=== PATIENT | female | born 1990 | race Caucasian/White ===

== ENCOUNTER 2023-11-24 14:35 | Emergency (ER) | payer BC, SELFPAY ==
[2023-11-24 14:51] VITALS: BP 146/91; PULSE 94; RESP 20; TEMP 36.8; O2SAT 98; BMI 32.1
--- NOTE | 2023-11-24 15:01 | CT_ITS ---
The [address] [address] Patient Name: ERICK HARRINGTON MRN: [id number] date: 1990 Sex: F Assigned Patient Location: ER Current Patient Location: ER Accession/Order Number: [id number] Exam Date: 11/24/2023 15:12 Report Date: 11/24/2023 15:30 At the request of: PARKER DE LOS SANTOS Procedure: CT head/brain wo con EXAMINATION: CT head/brain wo con HISTORY: Frontal headache for 3 days COMPARISON: No relevant comparison available. TECHNIQUE: Axial CT images were obtained without IV contrast. Dose reduction techniques were achieved by using automated exposure control and/or adjustment of mA and/or kV according to patient size and/or use of iterative reconstruction technique. FINDINGS: BRAIN: No edema, hemorrhage, mass, acute infarction, or inappropriate atrophy. CSF SPACES: Enlarged lateral, third, and fourth ventricles. No appreciable mass effect or descent of the tentorium. No hemorrhage or mass. SKULL: No fracture, mass, or other significant visible lesion. SINUSES: No significant mucosal thickening or fluid on the limited views. ORBITS: No appreciable abnormality on the limited views. OTHER: Negative CT/CT head/brain wo con IMPRESSION: 1. No intracranial hemorrhage or mass. 2. 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 While I suspect this is chronic/long-standing, there are no prior studies for comparison. Electronically authenticated by: LUCRECIA THAPA Date: 11/24/2023 15:30
--- NOTE | 2023-11-24 15:01 | ED.GENADUL1 ---
HPI - General Adult General Chief complaint: Headache Stated complaint: HEADACHE SYMPYOMS/PRESSURE Time Seen by Provider: 11/24/23 14:51 Source: patient Mode of arrival: walk-in Limitations: no limitations History of Present Illness HPI narrative: 33-year-old female presents for headache. It is frontal and she has had no trauma fever or localized weakness. She has been having this for 3 days and intermittently she has a sharp stabbing sensation. No cough chest pain or shortness of breath. No vomiting or diarrhea. She took some dusr-dsb-cqyfmmr medications for it but it did not seem to help. Related Data Previous Rx's Medication Instructions Recorded ipzmdcqwdp-lehcvoytmbfdg-woheovbo 1 cap PO Q6H PRN pain #20 caps 11/24/23 50 mg-300 mg-40 mg capsule (Fioricet) Allergies Allergy/AdvReac Type Severity Reaction Status Date / Time No Known Drug Allergies Allergy Verified 11/24/23 14:50 Review of Systems ROS Narrative A ten point review of systems is negative except as noted above. PFSH PFSH Social History Smoking status: Former smoker Exam Narrative Exam Narrative: Nurses note and vital signs reviewed and patient is not hypoxic. General: The patient appears well and in no apparent distress. Patient is resting comfortably on cart. Skin: Warm, dry, no pallor noted. There is no rash noted. Head: Normocephalic, atraumatic Eye: Normal conjunctiva, no drainage, EOMI. PERRL; no facial swelling or erythema Ears, Nose, Mouth, and Throat: oral mucosa is moist. Nares patent. Cardiovascular: Regular Rate and Rhythm Respiratory: Patient is in no distress, no accessory muscle use, lungs are clear to auscultation, no wheezing, rales or rhonchi Back: non-tender GI: Soft and nontender Musculoskeletal: The patient has no evidence of calf tenderness, no pitting edema, symmetrical pulses noted bilaterally Neurological: A&O, normal speech Psychiatric: Cooperative Constitutional Vital Signs, click to edit/add: Last Vital Signs Temp 98.2 F 11/24/23 14:51 Pulse 94 H 11/24/23 14:51 Resp 20 11/24/23 14:51 BP 146/91 H 11/24/23 14:51 Pulse Ox 98 11/24/23 14:51 O2 Del Method Room Air 11/24/23 14:51 Course Vital Signs Vital signs: Vital Signs Temperature 98.2 F 11/24/23 14:51 Pulse Rate 94 H 11/24/23 14:51 Respiratory Rate 11/24/23 14:51 Blood Pressure 146/91 H 11/24/23 14:51 Pulse Oximetry 98 11/24/23 14:51 Oxygen Delivery Method Room Air 11/24/23 14:51 Temperature 98.2 F 11/24/23 14:51 Pulse Rate 94 H 11/24/23 14:51 Respiratory Rate 11/24/23 14:51 Blood Pressure 146/91 H 11/24/23 14:51 Pulse Oximetry 98 11/24/23 14:51 Oxygen Delivery Method Room Air 11/24/23 14:51 Medical Decision Making MDM Narrative Medical decision making narrative: CAT scan shows enlarged ventricles and she is being referred to neurology for follow-up. She was given IM Toradol and prescribed Fioricet. She has never had a previous CAT scan of her head. Treatment diagnosis and follow-up were discussed with the patient. Differential Diagnosis Differential Diagnosis: Tension headache, intracranial hemorrhage, nonspecific headache Imaging Data CT scan - head: Radiologist's impression: ITS Impressions Head CT 11/24/23 15:01 IMPRESSION: 1. No intracranial hemorrhage or mass. 2. 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 While I suspect this is chronic/long-standing, there are no prior studies for comparison. Electronically authenticated by: LUCRECIA THAPA Date: 11/24/2023 15:30 Discharge Plan Discharge Chief Complaint: Headache Clinical Impression: Headache Patient Disposition: Home, Self-Care Time of Disposition Decision: 15:42 Condition: Good Mode of Transportation: Private Vehicle Prescriptions / Home Meds: New aollzgawgm-ksudhdmcurada-hwtd [Fioricet] 50-300-40 mg capsule 1 cap PO Q6H PRN (Reason: pain) Qty: 20 0RF Instructions: Acute Headache (ED) Additional Instructions: Follow-up with [facility] Stand Alone Forms: Portal Instructions Referrals: Physician,Non-Staff, MD [Primary Care Provider] - 1 week
[2023-11-24] MEDS: KETOROLAC TROMETHAMINE 60 MG/2 ML VIAL IM (15:49)
== END 2023-11-24 15:54 | disposition home or self-care (01) ==
PROVIDERS: Emergency Provider Emergency Medicine
DX: R51.9 Headache, unspecified (principal); Z87.891 Personal history of nicotine dependence
CPT/HCPCS: 70450; 96372; 99285; J1885

== ENCOUNTER 2023-11-25 10:41 | Emergency (ER) | payer BC, SELFPAY ==
[2023-11-25 10:46] VITALS: BP 140/76; PULSE 102; RESP 18; TEMP 36.9; O2SAT 96; BMI 32.1
--- NOTE | 2023-11-25 10:59 | ED_ITS ---
HPI - General Adult General Chief complaint: Headache Stated complaint: HEADACHE X4 DAYS Time Seen by Provider: 11/25/23 10:58 Source: patient and family Mode of arrival: walk-in Limitations: no limitations History of Present Illness HPI narrative: Patient is a 33-year-old female who is presenting to the ER with chief complaint of bilateral frontal headache that radiates to the bilateral upper parietal area since either Tuesday or Tuesday. Patient does not typically have history of headaches or migraines. She says that she will get headaches typically monthly when she thinks that she is ovulating, she thinks she may have been ovulating at the beginning of the week. Patient is due for her menses in a few weeks, patient says that she is not , does not want to be checked. Patient did have a CT of the brain yesterday, she was seen in the ER and evaluated for this headache yesterday as well. Patient was given medication, says she is felt slightly better prior to discharge. She was given a prescription for Fioricet. Patient took 1 Fioricet this morning with little relief, came back to the ER this morning for reevaluation with her sister who can drive home. Patient has no recent fall, no trauma, no other acute complaints. Patient is been having nausea and vomiting yesterday and today as well. No bloody emesis. No coffee- ground color. Yellowish coloration. No photophobia or phonophobia. No other acute complaints. All systems are negative except as noted/marked. All systems reviewed and otherwise negative. Nurses note and vital signs reviewed and patient is not hypoxic. General: The patient appears mild distress secondary to pain. When I walked into the room, patient is holding the top of her head. Patient is resting comfortably on cart. Patient is not toxic, lethargic, or listless Skin: Warm, dry, no pallor noted. There is no rash noted. No petechiae, purpura. Head: Normocephalic, atraumatic; no meningeal signs or symptoms, no nuchal rigidity. Eye: Normal conjunctiva, no drainage, EOMI. PERRL Ears, Nose, Mouth, and Throat: oral mucosa is moist. Nares patent. Mouth without vesicles. Cardiovascular: Regular Rate and Rhythm, no murmur, gallop, rub Respiratory: Patient is in no distress, no accessory muscle use, lungs are clear to auscultation, no wheezing, rales or rhonchi Back: non-tender, no CVA tenderness bilaterally to percussion. No CT LS midline pain GI: obese, no tenderness to palpation, no masses appreciated. No rebound, guarding, or rigidity noted. No distention Musculoskeletal: Patient has full range of motion of all of the extremities, no motor, sensory, or focal neurological deficits Neurological: A&O x4, normal speech no neurological deficits; Psychiatric: Cooperative Related Data Previous Rx's Medication Instructions Recorded pkljjlroan-qfirikgnqihsv-rjwseyvp 1 cap PO Q6H PRN pain #20 caps 11/24/23 50 mg-300 mg-40 mg capsule (Fioricet) prochlorperazine maleate 10 mg 10 mg PO Q8H PRN nausea and 11/25/23 tablet (Compazine) vomiting 3 days #10 tabs Allergies Allergy/AdvReac Type Severity Reaction Status Date / Time No Known Drug Allergies Allergy Verified 11/24/23 14:50 PFSH PFSH Social History Smoking status: Current every day smoker Exam Constitutional Vital Signs, click to edit/add: Last Vital Signs Temp 98.5 F 11/25/23 10:46 Pulse 85 11/25/23 13:00 Resp 14 11/25/23 13:00 BP 147/82 H 11/25/23 13:00 Pulse Ox 97 11/25/23 13:00 O2 Del Method Room Air 11/25/23 13:00 Course Vital Signs Vital signs: Vital Signs Temperature 98.5 F 11/25/23 10:46 Pulse Rate 102 H 11/25/23 10:46 Respiratory Rate 18 11/25/23 10:46 Blood Pressure 140/76 11/25/23 10:46 Pulse Oximetry 96 11/25/23 10:46 Oxygen Delivery Method Room Air 11/25/23 10:46 Temperature 98.5 F 11/25/23 10:46 Pulse Rate 85 11/25/23 13:00 Respiratory Rate 14 11/25/23 13:00 Blood Pressure 147/82 H 11/25/23 13:00 Pulse Oximetry 97 11/25/23 13:00 Oxygen Delivery Method Room Air 11/25/23 13:00 Medical Decision Making MDM Narrative Medical decision making narrative: Patient had IV established, patient was given Zofran and Compazine, along with Toradol, IV fluids as well. Patient had a COVID and influenza swab done. 1130 patient has had medication, patient is sleeping. Patient's sister stated that she has not slept much in the last couple days. 1200 Patient is headache, nausea free. Patient feels significantly better. Patient is completely asymptomatic at discharge, patient told Aranza VALE and this and she told myself and was very thankful for help and care. Patient was sent home with prescription for Compazine to use in the future if needed for nausea, vomiting, or headache. Patient will follow-up with PCP if she needs additional migraine or headache medication. No questions at discharge. Lab Data Labs: Lab Results 11/25/23 Range/Units 10:50 Influenza Type A Ag Negative Influenza Type B Ag Negative SARS-CoV-2 Ag (CV2AG) Negative (NEGATIVE) Discharge Plan Discharge Chief Complaint: Headache Clinical Impression: Headache, Nausea & vomiting Patient Disposition: Home, Self-Care Time of Disposition Decision: 12:50 Condition: Good Prescriptions / Home Meds: New prochlorperazine maleate [Compazine] 10 mg tablet 10 mg PO Q8H PRN (Reason: nausea and vomiting) 3 Days Qty: 10 0RF No Action rfdbmxuqnn-oewmmzgxbfqnd-uivh [Fioricet] 50-300-40 mg capsule 1 cap PO Q6H PRN (Reason: pain) Qty: 20 0RF Instructions: Acute Nausea and Vomiting (ED), General Headache (ED) Additional Instructions: Increase fluids at home, Gatorade, Powerade, water. Use Compazine as needed for nausea, vomiting or headache. Follow-up with PCP for additional medication reevaluation in 3 to 4 days. Stand Alone Forms: Portal Instructions Referrals: Physician,Non-Staff, MD [Primary Care Provider] - 1 week Discharge Date/Time: 11/25/23 13:07
[2023-11-25] MEDS: DEXAMETHASONE SOD PHOS 10 MG/ML VIAL IV (11:05)
[2023-11-25] MEDS: ONDANSETRON PF 4 MG/2 ML VIAL IV (11:05)
[2023-11-25] MEDS: 0.9 % SODIUM CHLORIDE 1,000 ML 1000 ML IV (11:05)
--- OUTSIDE RECORDS SUMMARY | 2023-11-25 11:07 | XMS_ITS | CCD ---
Author Name Unknown Address [address] [place] [address] [facility] Care Team Providers Care Clothes Presser Name Role Phone JUDI NO Admitting Unavailable JUDI NO Attending Unavailable KEE COOPER Consulting Unavailable JUDI NO Consulting Unavailable JUDI NO Admitting Unavailable JUDI NO Attending Unavailable JUDI NO Consulting Unavailable JUDI NO Admitting Unavailable JUDI NO Attending Unavailable MISC, DOCTOR Primary Care Unavailable JUDI NO Consulting Unavailable JUDI NO Admitting Unavailable JUDI NO Attending Unavailable JUDI NO Consulting Unavailable JUDI NO Admitting Unavailable JUDI NO Attending Unavailable JUDI NO Consulting Unavailable JUDI NO Admitting Unavailable JUDI NO Attending Unavailable JUDI NO Consulting Unavailable JUDI NO Admitting Unavailable JUDI NO Attending Unavailable JUDI NO Consulting Unavailable JUDI NO Admitting Unavailable JUDI NO Attending Unavailable JUDI NO Consulting Unavailable JUID NO Admitting Unavailable JUDI NO Attending Unavailable JUDI NO Consulting Unavailable JUDI NO Admitting Unavailable JUDI NO Attending Unavailable REQUEST, NONE LISTED Primary Care Unavailable JUDI NO Consulting Unavailable JUDI NO Admitting Unavailable JUDI NO Attending Unavailable JUDI NO Consulting Unavailable JUDI NO Admitting Unavailable JUDI NO Attending Unavailable REQUEST, NONE LISTED Primary Care Unavailable BEBO HAZEL V Consulting Unavailable JUDI NO Consulting Unavailable JUDI NO Admitting Unavailable JUDI NO Attending Unavailable REQUEST, NONE LISTED Primary Care Unavailable BEBO HAZEL V Consulting Unavailable JUDI NO Consulting Unavailable JUDI ON Admitting Unavailable JUDI NO Attending Unavailable REQUEST, NONE LISTED Primary Care Unavailable JUDI NO Admitting Unavailable JUDI NO Attending Unavailable REQUEST, NONE LISTED Primary Care Unavailable JUDI NO Admitting Unavailable JUDI NO Attending Unavailable REQUEST, NONE LISTED Primary Care Unavailable Ramila Byrne Unavailable Shruthi Vang Unavailable Medications Current Medications Medication Drug Class(es) Dates Sig (Normalized) Sig (Original) predniSONE 20 mg oral tablet (1 source) Start: 10-12-2023 take 1 tablet by mouth every twelve hours predniSONE 20 MG 1 tablet Orally bid for 5 day(s) Oct, Active Completed/Discontinued Medications Medication Drug Class(es) Dates Sig (Normalized) Sig (Original) dextromethorphan hydrobromide 15 mg / guaiFENesin 400 mg / pseudoephedrine hydrochloride 60 mg oral tablet (2 sources) alpha-Adrenergic Agonist, Uncompetitive X-hvbxgr-V-aspartat e Receptor Antagonist, Sigma-1 Agonist Start: 08-31-2021 take 4 tablets by mouth every twenty-four hours as needed Capmist DM 60-15-400 MG as needed Orally every 4-6 hours as needed, max 4 tablets in 24 hours for 5 days Aug, Not-Taking/PRN ibuprofen 800 mg oral tablet (1 source) Nonsteroidal Anti-inflammatory Drug Ibuprofen 800 MG (Prior Auth: Rx Ref#:[id number] 4) Oral for 10 Days Not-Taking/PRN oseltamivir 75 mg oral capsule (1 source) Neuraminidase Inhibitor Oseltamivir Phosphate 75 MG (Prior Auth: Rx Ref#:[id number] 3) Oral for 5 Days Not-Taking/PRN sodium fluoride 0.011 mg/mg toothpaste (1 source) PreviDent 5000 Booster Plus 1.1 % (Prior Auth: Rx Ref#:[id number] 7) Dental for 12 Days Not-Taking/PRN Problems Active Problems Problem Classification Problem Date Documented Date Episodic/Chronic Hypertension complicating ; childbirth and the puerperium (8 sources) Unspecified pre-existing hypertension complicating , third trimester; Translations: [Unspecified pre-existing hypertension complicating , unspecified trimester] Onset: 09-04-2018 Chronic Influenza (1 source) Influenza due to other identified influenza virus with other respiratory manifestations Episodic Other complications of (1 source) Smoking (tobacco) complicating , third trimester; Translations: [SMOKING TOBACCO COMP PREG 3RD TRI] Onset: 03-15-2019 Episodic Previous (4 sources) Maternal care for unspecified type scar from previous delivery; Translations: [MAT CARE UNS TYPE SCAR PREV C-SECT] Onset: 10-27-2018 Residual codes; unclassified (1 source) 33 weeks gestation of ; Translations: [33 WEEKS GESTATION OF ] Onset: 03-06-2019 Residual codes; unclassified (1 source) 34 weeks gestation of ; Translations: [34 WEEKS GESTATION OF ] Onset: 03-15-2019 Substance-related disorders (1 source) Nicotine dependence, cigarettes, uncomplicated; Translations: [NICOTINE DEPEND CIGARETTES UNCOMP] Onset: 03-15-2019 Chronic Past or Other Problems Problem Classification Problem Date Documented Date Episodic/Chronic Diabetes mellitus without complication (4 sources) Other abnormal glucose; Translations: [OTHER ABNORMAL GLUCOSE] Onset: 01-05-2019 Episodic Immunizations and screening for infectious disease (1 source) Contact with and (suspected) exposure to other viral communicable diseases Onset: 08-31-2021 Resolved: 08-31-2021 Episodic Other female genital disorders (4 sources) Other specified noninflammatory disorders of vagina; Translations: [OTH SPEC NONINFLAMMATORY D/O VAGINA] Onset: 01-10-2019 Episodic Other and delivery including normal (12 sources) Encounter for supervision of normal , unspecified, second trimester; Translations: [Encounter for test, result positive] Onset: 08-30-2018 Episodic Other screening for suspected conditions (not mental disorders or infectious disease) (4 sources) Encounter for screening for malignant neoplasm of cervix; Translations: [ENC SCREENING MALIG NEOPLASM CERV] Onset: 10-18-2018 Episodic Unclassified (1 source) Contact with and (suspected) exposure to covid-19 Z20.822 Unclassified (1 source) Acute cough R05.1 Viral infection (1 source) COVID-19 Onset: 08-31-2021 Resolved: 08-31-2021 Results Test Name Value Interpretation Reference Range Facility COVID/FLU/RSV RT-PCRon 10-12 SARS-CoV-2 (COVID-19) RNA KATARINA+probe Ql (Unsp spec) Negative [facility] Other COVID/FLU/RSV RT-PCR Positive [facility] Other COVID/FLU/RSV RT-PCR Negative [facility] Other COVID Quick Testingon 2020 Result Positive [facility] Other US PREG AMNIOTIC FLUID VOLon 03-07-2019 US PREG AMNIOTIC FLUID VOL Patient: ERICK HARRINGTON Exam Date: 03/07/2019 : 1990 Gender:F Ordering : DR. JUDI NO . Admission #: [id number] Family : Order #: [id number] CLICK HERE TO VIEW EXAM RADIOLOGY REPORT PROCEDURE: ULTRASOUND AMNIOTIC FLUID VOLUME COMPARISON: US PREG AMNIOTIC FLUID VOL, 02/28/2019. INDICATIONS: Pre-existing hypertension complicating , childbirth and puerperium;34w3d single TECHNIQUE: Limited sonographic examination for amniotic fluid volume FINDINGS: POSITION: Cephalic HEART RATE: 137 bpm AMNIOTIC FLUID VOL: 15.6 cm (Between 5th and 95th percentile.) MAX VERTICAL POCKET: 9.7 cm CONCLUSION: 1. Normal amniotic fluid volume Dictated by: Bebo Hazel M.D. on 03/07/2019 at 11:01 Approved by: Bebo Hazel M.D. on 03/07/2019 at 11:01 Normal [facility] US PREG BIOPHY W NSTon 03-07 US PREG BIOPHY W NST Patient: ERICK HARRINGTON Exam Date: 03/07/2019 : 1990 Gender:F Ordering : DR. JUDI NO . Admission #: [id number] Family : Order #: [id number] CLICK HERE TO VIEW EXAM RADIOLOGY REPORT PROCEDURE: ULTRASOUND BIOPHYSICAL WITH NON STRESS TEST COMPARISON: US PREG BIOPHY W NST, 02/28/2019. INDICATIONS: Pre-existing hypertension complicating , childbirth and puerperium; 34w3d single TECHNIQUE: Ultrasound biophysical profile was performed in the radiology department. non-reactive stress testing was performed by nursing staff in the birthing center. FINDINGS: BREATHING MOVEMENTS: 2 GROSS BODY MOVEMENTS: 2 TONE: 2 QUALITATIVE AMNIOTIC FLUID VOLUME: 2 PRESENTATION: Cephalic HEART RATE: 137.06 H.B./min AMNIOTIC FLUID VOLUME: 15.56 cm GESTATIONAL AGE: 34 weeks, 3 days CONCLUSION: 1. Total biophysical profile score 8. Dictated by: Bebo Hazel M.D. on 03/07/2019 at 11:02 Approved by: Bebo Hazel M.D. on 03/07/2019 at 11:02 Normal [facility] US PREG AMNIOTIC FLUID VOLon 02-28-2019 US PREG AMNIOTIC FLUID VOL Patient: ERICK HARRINGTON Exam Date: 02/28/2019 : 1990 Gender:F Ordering : DR. JUDI NO . Admission #: [id number] Family : Order #: [id number] CLICK HERE TO VIEW EXAM RADIOLOGY REPORT PROCEDURE: ULTRASOUND AMNIOTIC FLUID VOLUME COMPARISON: None. INDICATIONS: Pre-existing hypertension complicating , childbirth and puerperium; 33w3d single TECHNIQUE: Limited sonographic examination for amniotic fluid volume FINDINGS: POSITION: Cephalic HEART RATE: 138 bpm AMNIOTIC FLUID VOL: 13.0 cm (Between 5th and 95th percentile.) MAX VERTICAL POCKET: 5.5 cm CONCLUSION: 1. Normal amniotic fluid volume Dictated by: Bebo Hazel M.D. on 02/28/2019 at 11:11 Approved by: Bebo Hazel M.D. on 02/28/2019 at 11:11 Normal [facility] US PREG BIOPHY W NSTon 02-28 US PREG BIOPHY W NST Patient: ERICK HARRINGTON Exam Date: 02/28/2019 : 1990 Gender:F Ordering : DR. JUDI NO . Admission #: [id number] Family : Order #: [id number] CLICK HERE TO VIEW EXAM RADIOLOGY REPORT PROCEDURE: ULTRASOUND BIOPHYSICAL WITH NON STRESS TEST COMPARISON: None. INDICATIONS: Pre-existing hypertension complicating , childbirth and puerperium; 33w3d single TECHNIQUE: Ultrasound biophysical profile was performed in the radiology department. non-reactive stress testing was performed by nursing staff in the birthing center. FINDINGS: BREATHING MOVEMENTS: 2 GROSS BODY MOVEMENTS: 2 TONE: 2 QUALITATIVE AMNIOTIC FLUID VOLUME: 2 PRESENTATION: Cephalic HEART RATE: 138.46 H.B./min AMNIOTIC FLUID VOLUME: 13.01 cm GESTATIONAL AGE: 33 weeks, 3 days CONCLUSION: 1. Total biophysical profile score 8. Dictated by: Bebo Hazel M.D. on 02/28/2019 at 11:10 Approved by: Bebo Hazel M.D. on 02/28/2019 at 11:11 Normal [facility] VAGINITIS/VAGINOSIS DNA PROB Kedar 01-11-2019 Janeth species Negative Normal Negative [facility] Comment on above: Performed By: #### C BC #### [facility] [address] [id number] Milagro Maddy Gardnerella vaginalis Negative Normal Negative [facility] Comment on above: Performed By: #### C BC #### [facility] [address] [address] Milagro Maddy Trichomonas vaginalis Negative Normal Negative [facility] Comment on above: Performed By: #### C BC #### [facility] [address] [address] Milagro Maddy GTT 3 HR PREGon 01-05-2019 Glucose [Mass/Vol] 88 mg/dL Normal 74-[address] [facility] Comment on above: Performed By: #### C BC #### [facility] [address] [address] Milagro Maddy Glucose [Mass/Vol] 140 mg/dL Normal [facility] Comment on above: Performed By: #### C BC #### [facility] [address] [address] Milagro Maddy Glucose [Mass/Vol] 105 mg/dL Normal [facility] Comment on above: Performed By: #### C BC #### [facility] [address] [place] [address] Milagro Maddy Glucose [Mass/Vol] 149 mg/dL Normal [facility] Comment on above: Performed By: #### C BC #### [facility] [address] [id number] Milagro Maddy CBC AUTO DIFFon 12-28-2018 Basophils (Bld) [#/Vol] 0.0 103/ul Normal 0.0-0.1 [facility] Comment on above: Performed By: #### C BC ####[facility] [address] [id number] Maddy Basophils/100 WBC (Bld) 0.3 % Normal 0.2-2.0 [facility] Comment on above: Performed By: #### C BC ####[facility] [address] [place], [place] [address]Ovpvzo Maddy Eosinophils (Bld) [#/Vol] 0.3 103/ul Normal 0.0-0.7 [facility] Comment on above: Performed By: #### C BC ####[facility] [address] [place], [place] [address]Ocmvwi Maddy Eosinophils/100 WBC (Bld) 2.2 % Normal 0.9-7.0 [facility] Comment on above: Performed By: #### C BC ####[facility] [address] [place], [place] [address]Gerken Maddy Erythrocyte distribution width (RBC) [Ratio] 13.2 % Normal 11.0-15.0 [facility] Comment on above: Performed By: #### C BC ####[facility] [address] [place], [place] [address]Gerken Maddy Hematocrit (Bld) [Volume fraction] 33.2 % Critically low 36.0-48.0 [facility] Comment on above: Performed By: #### C BC ####[facility] [address] [place], [place] [address]Gerken Maddy Hemoglobin (Bld) [Mass/Vol] 10.9 g/dL Critically low 12.0-16.0 [facility] Comment on above: Performed By: #### C BC ####[facility] [address] [place], [place] [address]Gerken Maddy IG # 0.09 10e3/ul Critically high 0.00-0.03 [facility] Comment on above: Performed By: #### C BC ####[facility] [address] [place], [place] [address]Gerken Maddy IG % 0.7 % Critically high 0.0-0.5 [facility] Comment on above: Performed By: #### C BC ####[facility] [address] [place], [place] [address]Gerken Maddy Lymphocytes (Bld) [#/Vol] 2.0 103/ul Normal 1.2-3.8 [facility] Comment on above: Performed By: #### C BC ####[facility] [address] [place], [place] [address]Egohio Maddy Lymphocytes/100 WBC (Bld) 15.6 % Critically low 20.5-60.0 [facility] Comment on above: Performed By: #### C BC ####[facility] [address] [place], [place] [address]Yuwegm Karen MANUAL DIFF REQ NO Normal [facility] Comment on above: Performed By: #### C BC ####[facility] [address] [place], [place] [address]Hlvdgs Maddy MCH (RBC) [Entitic mass] 29.7 pg Normal 26.7-34.0 [facility] Comment on above: Performed By: #### C BC ####[facility] [address] [place], [place] [address]Dakxxx Karen MCHC (RBC) [Mass/Vol] 32.8 g/dL Normal 29.9-35.2 [facility] Comment on above: Performed By: #### C BC ####[facility] [address] [place] [address]Vquxum Maddy MCV (RBC) [Entitic vol] 90.5 fL Normal 81.0-99.0 [facility] Comment on above: Performed By: #### C BC ####[facility] [address] [place], [place] [address]Feckto Maddy Monocytes (Bld) [#/Vol] 0.7 103/ul Normal 0.3-0.8 [facility] Comment on above: Performed By: #### C BC ####[facility] [address] [place], [place] [address]Qumawt Maddy Monocytes/100 WBC (Bld) 5.2 % Normal 1.7-12.0 [facility] Comment on above: Performed By: #### C BC ####[facility] [address] [place], [place] [address]Qnhrez Maddy Neutrophils (Bld) [#/Vol] 9.8 103/ul Critically high 1.4-6.5 [facility] Comment on above: Performed By: #### C BC ####[facility] [address] [address]Milagro Castañeda Neutrophils/100 WBC (Bld) 76.0 % Critically high 43.0-75.0 [facility] Comment on above: Performed By: #### C BC ####[facility] [address] [address]Gerken Maddy Platelet mean volume (Bld) [Entitic vol] 12.4 fL Normal 9.5-13.5 [facility] Comment on above: Performed By: #### C BC ####[facility] [address] [address]Gerken Maddy Platelets (Bld) [#/Vol] 161 103/ul Normal 150-450 [facility] Comment on above: Performed By: #### C BC ####[facility] [address] [address]Gerken Maddy RBC (Bld) [#/Vol] 3.67 106/ul Critically low 4.20-5.40 [facility] Comment on above: Performed By: #### C BC ####[facility] [address] [address]Gerken Maddy WBC (Bld) [#/Vol] 12.8 103/ul Critically high 4.0-11.0 [facility] Comment on above: Performed By: #### C BC ####[facility] [address] [phone] Maddy GLUCOSE BLOODon 12-28-2018 Glucose [Mass/Vol] 145 mg/dL Critically high 74-106 [facility] Comment on above: Result Comment: Prev iously reported as: 145 On 12/28/2018 13:48 By BH3 Performed By: #### G NANCY ####[facility] [address] [address]Gerken Maddy Performed By: #### C BC #### [facility] [address] [phone] Milagro Castañeda AFP TETRA PROFILE (MATERNAL) on 11-01-2018 Comment Comment Normal [facility] Comment on above: Result Comment: Fransisco Rizvi, Ph.D., [facility] Principal Genetics Drug And Alcohol Counselor . References: Available Upon Request. . Multiples Of Median Cutoffs Abbreviation Definitions For AFP Elevations IDD- Insulin Dep Diabetes Mcfarlane 2.5 Black 2.8 OSBR- Open Spina Bifida IDD 2.0 Twins 4.5 Risk DSR Cutoff 1:270 DSR- Down Syndrome Risk T18 Cutoff 1:100 T18- Trisomy 18 . Down Syndrome and Trisomy 18 screening are considered Investigational . For further inquiries contact [facility] at [phone]. Performed By: #### A FPTET ####[facility] [address] [phone] Maddy PDF . Normal [facility] Comment on above: Performed By: #### A FPTET ####[facility] [address] [phone] Maddy AFP MoM 1.08 Normal [facility] Comment on above: Performed By: #### A FPTET ####[facility] [address] [phone] Maddy AFP Value 24.3 ng/mL Normal [facility] Comment on above: Performed By: #### A FPTET ####[facility] [address] [phone] Maddy MELISSA MoM 0.73 Normal [facility] Comment on above: Performed By: #### A FPTET ####[facility] [address] [phone] Maddy MELISSA Value 95.44 pg/mL Normal [facility] Comment on above: Performed By: #### A FPTET ####[facility] [address] [phone] Maddy DSR (By Age) 1 IN 930 Normal [facility] Comment on above: Performed By: #### A FPTET ####[facility] [address] [phone] Maddy DSR (Second Trimester) 1 [place] 7151 Normal [facility] Comment on above: Performed By: #### A FPTET ####[facility] R[address] Maddy Gest. Age on Collection Date 15.7 WEEKS Normal [facility] Comment on above: Performed By: #### A FPTET ####[facility] Iugay[address] Maddy Gestat. Age Based On LMP [facility] Comment on above: Performed By: #### A FPTET ####[facility] Nvgix[address] hCG MoM 0.33 Normal [facility] Comment on above: Performed By: #### A FPTET ####[facility] Dqvuk[address]vtm[address] [place] [address] m[IU]/mL Normal [facility] Comment on above: Performed By: #### A FPTET ####[facility] Uaytc[address]bm[address] Insulin Dep Diabetes No Normal [facility] Comment on above: Performed By: #### A FPTET ####[facility] Tnrs[address]kj[address] Interpretation Comment Normal [facility] Comment on above: Result Comment: Inte rpretation: Screen Negative This result is screen negative for OSB, Down Syndrome and Trisomy 18. The AFP MoM and patient specific risks calculated are based on the gestational age and the clinical information provided. This test can identify up to 80% of open neural tube defects. Closed neural tube defects and some open defects may not be detected by this test. The combination of maternal age, AFP, hCG, uE3, and MELISSA identifies 75-80% of Down Syndrome. The combination of maternal age, AFP, hCG and uE3 identifies 60% of Trisomy 18 pregnancies. The [employer] recommends amniocentesis be offered to women age 35 and older. Recalculations are not recommended when gestational dating by LMP and ultrasound are within 10 days. Performed By: #### A FPTET ####[facility] Ip[address] Maddy [age] Normal [facility] Comment on above: Performed By: #### A FPTET ####[facility] [address] [phone] Maddy Multiple Gestation No Normal [facility] Comment on above: Performed By: #### A FPTET ####[facility] Mylzzmq[address]my[address] Maddy OSBR Risk 1 [place] 9540 Normal [facility] Comment on above: Performed By: #### A FPTET ####[facility] Zuokm[address]io[address] Maddy Race Normal [facility] Comment on above: Performed By: #### A FPTET ####[facility] Olwkinldns[address] Maddy Results Report Normal [facility] Comment on above: Performed By: #### A FPTET ####[facility] Ovyvufunsy[address] Maddy T18 (By Age) 1:3625 Normal [facility] Comment on above: Performed By: #### A FPTET ####[facility] Jsh[address]oc[address]wq[address] Maddy T18 Risk Not increased Normal [facility] [place] [facility] Comment on above: Performed By: #### A FPTET ####[facility] Szhgwpzunh[address] Maddy Test Results: Negative Normal [facility] [place] [facility] Comment on above: Performed By: #### A FPTET ####[facility] Hqclw[address]cc[address] Maddy uE3 MoM 0.58 Normal [facility] Comment on above: Performed By: #### A FPTET ####[facility] Btgwueaega[address] Maddy uE3 Value 0.37 ng/mL Normal [facility] Comment on above: Performed By: #### A FPTET ####[facility] [address] [place] [address] Maddy PAP ACOG PANEL 4: 21 to 29on 10-20-2018 Age Gdln ACOG Testing 21-29 Normal [facility] Comment on above: Performed By: #### 4 [id number] ####[facility] [address] [place] [address] Maddy Chlamydia, Nuc. Acid Amp Negative Normal Negative [facility] Comment on above: Result Comment: Perf ormed at: =G Performed By: #### 4 [id number] ####[address] DIAGNOSIS: Comment Normal [facility] Comment on above: Result Comment: NEGA TIVE FOR INTRAEPITHELIAL LESION AND MALIGNANCY. Performed at: WB Performed By: #### 4 [id number] ####[facility] [address] [place] [address] Maddy Gonococcus, Nuc. Acid Amp Negative Normal Negative [facility] Comment on above: Result Comment: Perf ormed at: =G Performed By: #### 4 [id number] ####[address] Maddy Methodology: Comment Normal [facility] Comment on above: Result Comment: This liquid based ThinPrep(R) pap test was screened with the use of an image guided system. Performed at: WB Performed By: #### [id number] ####[facility] [address] [place], [place] [address]en Note: Comment Normal [facility] Comment on above: Result Comment: The Pap smear is a screening test designed to aid in the detection of premalignant and malignant conditions of the uterine cervix. It is not a diagnostic procedure and should not be used as the sole means of detecting cervical cancer. Both false-positive and false-negative reports do occur. . Performed at: WB Performed By: #### [id number] ####[facility] Pr[address]uz[address] Maddy Performed by: Comment Normal [facility] Comment on above: Result Comment: Toño Ace[employer] Installer (ASCP) Performed at: WB Performed By: #### 4 [id number] ####[facility] [address] [place] [address] Maddy Reflex Criteria: Comment Normal [facility] Comment on above: Result Comment: The HPV DNA reflex criteria were not met with this specimen result therefore, no HPV testing was performed. . Performed at: WB Performed By: #### 4 [id number] ####[facility] [address] [place] [address] Maddy Specimen adequacy: Comment Normal [facility] Comment on above: Result Comment: Sati sfactory for evaluation. Endocervical and/or squamous metaplastic cells (endocervical component) are present. Performed at: WB Performed By: #### [id number] ####[facility] [address] [place] [address] Maddy Trich vag by KATARINA Negative Normal Negative [facility] Comment on above: Result Comment: Perf ormed at: =G Performed By: #### [id number] ####[facility] [address] [place] [address] Maddy . . Normal [facility] Comment on above: Result Comment: Perf ormed at: WB Performed By: #### [id number] ####[facility] [address] [place] [address] Maddy GTT 3 HR PREGon 10-13-2018 Glucose [Mass/Vol] 97 mg/dL Normal [facility] Comment on above: Performed By: #### G TT3P ####[facility] [address] [place] [address] Maddy Glucose [Mass/Vol] 139 mg/dL Normal [facility] Comment on above: Performed By: #### G TT3P ####[facility] [address] [place] [address] Maddy Glucose [Mass/Vol] 92 mg/dL Normal 74-[address] [facility] Comment on above: Performed By: #### G TT3P ####[facility] [address] [address]Milagro Castañeda Glucose [Mass/Vol] 145 mg/dL Normal [facility] Comment on above: Performed By: #### G TT3P ####[facility] Hoq[address]pg[address] Maddy HEP B SURFACE ANTIGEN SCREEN on 09-26-2018 HBsAg Screen Negative Normal Negative [facility] Comment on above: Performed By: #### P REGQNT #### [facility] [address] [place] [address] Milagro Castañeda HEPATITIIS C VIRUS ANTIBODYo n 09-26-2018 Hep C Virus Ab 0.1 s/co ratio Normal 0.0-0.[address] [facility] Comment on above: Result Comment: Nega tive: < 0.8 Indeterminate: 0.8 - 0.9 Positive: > 0.9 . The CDC recommends that a positive HCV antibody result be followed up with a HCV Nucleic Acid Amplification test (287699). Performed By: #### P REGQNT #### [facility] [address] [place] [address] Milagro Castañeda HGB(ELECTP) FRACTION PROFILE on 09-26-2018 Hemoglobin (Bld) [Mass/Vol] 97.8 % Normal 96.4-98.8 [facility] Comment on above: Performed By: #### H GBELE ####[facility] Tr[address] Maddy Hgb A2 2.2 % Normal 1.8-3.2 [facility] Comment on above: Performed By: #### H GBELE ####[facility] [address] [place] [address] Maddy Hgb C 0.0 % Normal 0.0 [facility] Comment on above: Performed By: #### H GBELE ####[facility] [address] [address]Ger[address] Maddy Hgb F 0.0 % Normal 0.0-2.0 [facility] Comment on above: Performed By: #### H GBELE ####[facility] Ct[address] Maddy Hgb S 0.0 % Normal 0.0 [facility] Comment on above: Performed By: #### H GBELE ####[facility] F[address]xs[address] Maddy Hgb Solubility Negative Normal Negative [facility] Comment on above: Performed By: #### H GBELE ####[facility] M[address]ru[address] Maddy Hgb Variant Normal [facility] Comment on above: Performed By: #### H GBELE ####[facility] [address] [place] [address] Maddy Interpretation Comment Normal [facility] Comment on above: Result Comment: Norm al adult hemoglobin present. Performed By: #### H GBELE ####[facility] [address] [place] [address] Maddy HIV 1 AND 2 WITH REFLEXon HIV Screen 4th Generation wRfx Non Reactive Normal Non Reactive [facility] Comment on above: Performed By: #### H IV12 ####[facility] [address] [place] [address] Maddy RPR QUANTon 09-26-2018 Rapid Plasma Reagin, Quant Non Reactive Normal NonRea<1:1 [facility] Comment on above: Performed By: #### R PRQ ####[facility] [address] [place] [address] Maddy RUBELLA AB IGGon 09-26-2018 Rubella Antibodies, IgG 3.75 index Normal Immune >0.99 [facility] Comment on above: Result Comment: Non- immune <0.90 Equivocal 0.90 - 0.99 Immune >0.99 Performed By: #### R UBIGG ####[facility] [address] [place] [address] Maddy VARICELLA IGG ABon 8 Varicella Zoster IgG 268 index Normal Immune >165 [facility] Comment on above: Result Comment: Nega tive <135 Equivocal 135 - 165 Positive >165 A positive result generally indicates exposure to the pathogen or administration of specific immunoglobulins, but it is not indication of active infection or stage of disease. Performed By: #### V AVERY ####[facility] [address] [place], [place] [address]Yuezbu Maddy CBC AUTO DIFFon 09-25-2018 Basophils (Bld) [#/Vol] 0.0 103/ul Normal 0.0-0.1 [facility] Comment on above: Performed By: #### P REGQNT #### [facility] [address] [address] Milagro Maddy Basophils/100 WBC (Bld) 0.3 % Normal 0.2-2.0 [facility] Comment on above: Performed By: #### P REGQNT #### [facility] [address] [place] [address] Milagro Maddy Eosinophils (Bld) [#/Vol] 0.3 103/ul Normal 0.0-0.7 [facility] Comment on above: Performed By: #### P REGQNT #### [facility] [address] [place] [address] Milagro Maddy Eosinophils/100 WBC (Bld) 3.0 % Normal 0.9-7.0 [facility] Comment on above: Performed By: #### P REGQNT #### [facility] [address] [place], [place] [id number] Milagro Maddy Erythrocyte distribution width (RBC) [Ratio] 13.5 % Normal 11.0-15.0 [facility] Comment on above: Performed By: #### P REGQNT #### [facility] [address] [place], [place] [id number] Milagro Maddy Hematocrit (Bld) [Volume fraction] 33.7 % Critically low 36.0-48.0 [facility] Comment on above: Performed By: #### P REGQNT #### [facility] [address] [place], [place] [id number] Milagro Maddy Hemoglobin (Bld) [Mass/Vol] 10.9 g/dL Critically low 12.0-16.0 [facility] Comment on above: Performed By: #### P REGQNT #### [facility] [address] [place] [address] Milagro Maddy IG # 0.05 10e3/ul Critically high 0.00-0.03 [facility] Comment on above: Performed By: #### P REGQNT #### [facility] [address] [place] [address] Milagro Maddy IG % 0.5 % Normal 0.0-0.5 [facility] Comment on above: Performed By: #### P REGQNT #### [facility] [address] [place] [address] Milagro Maddy Lymphocytes (Bld) [#/Vol] 1.7 103/ul Normal 1.2-3.8 [facility] Comment on above: Performed By: #### P REGQNT #### [facility] [address] [place] [address] Milagro Maddy Lymphocytes/100 WBC (Bld) 18.1 % Critically low 20.5-60.0 [facility] Comment on above: Performed By: #### P REGQNT #### [facility] [address] [place] [address] Milagro Maddy MANUAL DIFF REQ NO Normal [facility] Comment on above: Performed By: #### P REGQNT #### [facility] [address] [place] [address] Milagro Maddy MCH (RBC) [Entitic mass] 27.9 pg Normal 26.7-34.0 [facility] Comment on above: Performed By: #### P REGQNT #### [facility] [address] [place] [address] Milagro Maddy MCHC (RBC) [Mass/Vol] 32.3 g/dL Normal 29.9-35.2 [facility] Comment on above: Performed By: #### P REGQNT #### [facility] [address] [place], [place] [address] Milagro Maddy MCV (RBC) [Entitic vol] 86.4 fL Normal 81.0-99.0 [facility] Comment on above: Performed By: #### P REGQNT #### [facility] [address] [place] [address] Milagro Maddy Monocytes (Bld) [#/Vol] 0.6 103/ul Normal 0.3-0.8 [facility] Comment on above: Performed By: #### P REGQNT #### [facility] [address] [place], [place] [id number] Milagro Maddy Monocytes/100 WBC (Bld) 6.1 % Normal 1.7-12.0 [facility] Comment on above: Performed By: #### P REGQNT #### [facility] [address] [place], [place] [id number] Milagro Maddy Neutrophils (Bld) [#/Vol] 6.6 103/ul Critically high 1.4-6.5 [facility] Comment on above: Performed By: #### P REGQNT #### [facility] [address] [place], [place] [id number] Milagro Maddy Neutrophils/100 WBC (Bld) 72.0 % Normal 43.0-75.0 [facility] Comment on above: Performed By: #### P REGQNT #### [facility] [address] [place], [place] [id number] Milagro Maddy Platelet mean volume (Bld) [Entitic vol] 12.1 fL Normal 9.5-13.5 [facility] Comment on above: Performed By: #### P REGQNT #### [facility] [address] [place] [address] Milagro Maddy Platelets (Bld) [#/Vol] 156 103/ul Normal 150-450 [facility] Comment on above: Performed By: #### P REGQNT #### [facility] [address] [place] [address] Milagro Maddy RBC (Bld) [#/Vol] 3.90 106/ul Critically low 4.20-5.40 [facility] Comment on above: Performed By: #### P REGQNT #### [facility] [address] [place], [place] [address] Milagro Castañeda WBC (Bld) [#/Vol] 9.2 103/ul Normal 4.0-11.0 [facility] Comment on above: Performed By: #### P REGQNT #### [facility] [address] [place], [place] [address] Milagro Castañeda PREG QUANT HCGon 09-25-2018 HCG QUANT 36718.00 mIU/mL Normal [facility] Comment on above: Performed By: #### P REGQNT #### [facility] [address] [id number] Milagro Castañeda HCG RANGE SEE BELOW Normal [facility] Comment on above: Result Comment: 5-50 0-1 WEEK 40-300 1-2 WEEKS 100-1,000 2-3 WEEKS 500-6,000 3-4 WEEKS 5,000-200,000 1-2 MONTHS 10,000-100,000 2-3 MONTHS 3,000-50,000 2ND TRIMESTER 1,000-50,000 3RD TRIMESTER Performed By: #### P REGQNT #### [facility] [address] [place], [place] [id number] Milagro Castañeda TYPE AND SCREENon 09-25-2018 TYPE AND SCREEN Negative Normal [facility] Comment on above: Performed By: #### P REGQNT #### [facility] [address] [place], [place] [address] Milagro Castañeda CULTURE URINEon 09-15-2018 CULTURE URINE Culture Observations: LIGHT GROWTH OF MIXED GENITAL ANIL. NO POTENTIAL PATHOGENS SEEN. Normal [facility] Comment on above: Performed By: #### P REGQNT #### [facility] [address] [place], [place] [address] Milagro Castañeda UA RANDOM W/MICROSCOPICon Bacteria LM.HPF (Urine sed) [#/Area] MODERATE Normal NONE SEEN [facility] [place] [facility] Comment on above: Performed By: #### P REGQNT #### [facility] [address] [place], [place] [id number] Milagro Maddy Bilirubin [Mass/Vol] Negative Normal NEGATIVE [facility] Comment on above: Performed By: #### P REGQNT #### [facility] [address] [place] [address] Milagro Maddy BLOOD Negative Normal NEGATIVE [facility] Comment on above: Performed By: #### P REGQNT #### [facility] [address] [place] [address] Milagro Maddy CAST NONE SEEN Normal NONE SEEN [facility] Comment on above: Performed By: #### P REGQNT #### [facility] [address] [place] [address] Milagro Maddy Clarity (U) CLEAR Normal [facility] Comment on above: Performed By: #### P REGQNT #### [facility] [address] [place] [address] Milagro Maddy Color (U) LT. YELLOW Normal YELLOW [facility] Comment on above: Performed By: #### P REGQNT #### [facility] [address] [place] [address] Milagro Maddy Crystals LM Nom (Urine sed) NONE SEEN Normal NONE SEEN [facility] Comment on above: Performed By: #### P REGQNT #### [facility] [address] [place] [address] Milagro Maddy Epithelial cells LM.HPF (Urine sed) [#/Area] MODERATE Normal [facility] Comment on above: Performed By: #### P REGQNT #### [facility] [address] [place] [address] Milagro Maddy Glucose [Mass/Vol] Negative Normal NEGATIVE [facility] Comment on above: Performed By: #### P REGQNT #### [facility] [address] [place] [address] Milagro Maddy Ketones Ql (U) Negative Normal NEGATIVE [facility] Comment on above: Performed By: #### P REGQNT #### [facility] [address] [place] [address] Milagro Maddy MUCOUS NONE SEEN Normal NONE SEEN [facility] Comment on above: Performed By: #### P REGQNT #### [facility] [address] [place], [place] [phone] Milagro Maddy Nitrite Ql (U) Negative Normal NEGATIVE [facility] Comment on above: Performed By: #### P REGQNT #### [facility] [address] [place], [place] [address] Milagro Maddy pH (Bld) 6.0 Normal 5-9 [facility] Comment on above: Performed By: #### P REGQNT #### [facility] [address] [place] [address] Milagro Maddy Protein [Mass/Vol] Negative Normal [facility] Comment on above: Performed By: #### P REGQNT #### [facility] [address] [place] [address] Milagro Maddy RBC (Bld) [#/Vol] 0-2 Normal 0-2 [facility] Comment on above: Performed By: #### P REGQNT #### [facility] [address] [place] [address] Milagro Castañeda SPEC GRAVITY 1.020 Normal 1.005-<=1.025 [facility] Comment on above: Performed By: #### P REGQNT #### [facility] [address] [place] [address] Milagro Castañeda Urobilinogen Qn (U) 0.2 EU/dl Normal [facility] Comment on above: Performed By: #### P REGQNT #### [facility] [address] [place] [address] Milagro Maddy WBC (Bld) [#/Vol] 2-5 Normal NONE SEEN [facility] Comment on above: Performed By: #### P REGQNT #### [facility] [address] [place], [place] [phone] Milagro Maddy WBC (Bld) [#/Vol] Negative Normal NEGATIVE [facility] Comment on above: Performed By: #### P REGQNT #### [facility] [address] [place], [place] [address] Milagro Castañeda BUNon 09-04-2018 Urea nitrogen [Mass/Vol] 11.0 mg/dL Normal 7.0-17.0 [facility] Comment on above: Performed By: #### A ST, URIC, BUN, ALT, LDH, CREA #### [facility] [address] [place], [place] [address] Milagro Maddy CBC AUTO DIFFon 09-04-2018 Basophils (Bld) [#/Vol] 0.0 103/ul Normal 0.0-0.1 [facility] Comment on above: Performed By: #### C BC #### [facility] [address] [place], [place] [address] Milagro Maddy Basophils/100 WBC (Bld) 0.4 % Normal 0.2-2.0 [facility] Comment on above: Performed By: #### C BC #### [facility] [address] [place], [place] [address] Milagro Amddy Eosinophils (Bld) [#/Vol] 0.3 103/ul Normal 0.0-0.7 [facility] Comment on above: Performed By: #### C BC #### [facility] [address] [place], [place] [address] Milagro Maddy Eosinophils/100 WBC (Bld) 2.6 % Normal 0.9-7.0 [facility] Comment on above: Performed By: #### C BC #### [facility] [address] [place], [place] [address] Milagro Maddy Erythrocyte distribution width (RBC) [Ratio] 13.4 % Normal 11.0-15.0 [facility] Comment on above: Performed By: #### C BC #### [facility] [address] [place], [place] [address] Milagro Maddy Hematocrit (Bld) [Volume fraction] 34.5 % Critically low 36.0-48.0 [facility] Comment on above: Performed By: #### C BC #### [facility] [address] [place], [place] [address] Milagro Maddy Hemoglobin (Bld) [Mass/Vol] 11.5 g/dL Critically low 12.0-16.0 [facility] Comment on above: Performed By: #### C BC #### [facility] [address] [id number] Milagro Maddy IG # 0.04 10e3/ul Critically high 0.00-0.03 [facility] Comment on above: Performed By: #### C BC #### [facility] [address] [id number] Milagro Maddy IG % 0.4 % Normal 0.0-0.5 [facility] Comment on above: Performed By: #### C BC #### [facility] [address] [place], [place] [address] Milagro Maddy Lymphocytes (Bld) [#/Vol] 1.7 103/ul Normal 1.2-3.8 [facility] Comment on above: Performed By: #### C BC #### [facility] [address] [place], [place] [address] Milagro Maddy Lymphocytes/100 WBC (Bld) 15.8 % Critically low 20.5-60.0 [facility] Comment on above: Performed By: #### C BC #### [facility] [address] [place], [place] [address] Milagro Maddy MANUAL DIFF REQ NO Normal [facility] Comment on above: Performed By: #### C BC #### [facility] [address] [place], [place] [address] Milagro Maddy MCH (RBC) [Entitic mass] 28.7 pg Normal 26.7-34.0 [facility] Comment on above: Performed By: #### C BC #### [facility] [address] [place], [place] [address] Milagro Maddy MCHC (RBC) [Mass/Vol] 33.3 g/dL Normal 29.9-35.2 [facility] Comment on above: Performed By: #### C BC #### [facility] [address] [place], [place] [address] Milagro Maddy MCV (RBC) [Entitic vol] 86.0 fL Normal 81.0-99.0 [facility] Comment on above: Performed By: #### C BC #### [facility] [address] [place], [place] [address] Milagro Maddy Monocytes (Bld) [#/Vol] 0.6 103/ul Normal 0.3-0.8 [facility] Comment on above: Performed By: #### C BC #### [facility] [address] [place] [address] Milagro Maddy Monocytes/100 WBC (Bld) 5.8 % Normal 1.7-12.0 [facility] Comment on above: Performed By: #### C BC #### [facility] [address] [place] [address] Milagro Maddy Neutrophils (Bld) [#/Vol] 7.8 103/ul Critically high 1.4-6.5 [facility] Comment on above: Performed By: #### C BC #### [facility] [address] [place] [address] Milagro Maddy Neutrophils/100 WBC (Bld) 75.0 % Normal 43.0-75.0 [facility] Comment on above: Performed By: #### C BC #### [facility] [address] [place] [address] Milagro Maddy Platelet mean volume (Bld) [Entitic vol] 11.5 fL Normal 9.5-13.5 [facility] Comment on above: Performed By: #### C BC #### [facility] [address] [place] [address] Milagro Maddy Platelets (Bld) [#/Vol] 175 103/ul Normal 150-450 [facility] Comment on above: Performed By: #### C BC #### [facility] [address] [place] [address] Milagro Maddy RBC (Bld) [#/Vol] 4.01 106/ul Critically low 4.20-5.40 [facility] Comment on above: Performed By: #### C BC #### [facility] [address] [place] [address] Milagro Maddy WBC (Bld) [#/Vol] 10.4 103/ul Normal 4.0-11.0 [facility] Comment on above: Performed By: #### C BC #### [facility] [address] [place], [place] [address] Milagrocuauhtemoc Castañeda CREATININEon 09-04-2018 Creatinine [Mass/Vol] mg/dL Normal >=60 [facility] Comment on above: Performed By: #### P REGQNT #### [facility] [address] [place] [address] Milagrocuauhtemoc Castañeda Creatinine [Mass/Vol] 0.61 mg/dL Normal 0.52-1.04 [facility] Comment on above: Performed By: #### P REGQNT #### [facility] [address] [place] [address] Milagro Castañeda GLUCOSE - 1HRon 09-04-2018 Glucose [Mass/Vol] 130 mg/dL Critically high 74-106 [facility] Comment on above: Performed By: #### G LU1HR #### [facility] [address] [place] [address] Milagro Castañeda GLYCOHEMOGLOBIN A1Con 2017 Glucose [Mass/Vol] 117 mg/dL Normal [facility] Comment on above: Performed By: #### A 1C #### [facility] [address] [place], [place] [address] Milagro Castañeda HbA1c (Bld) [Mass fraction] 5.7 % Normal <=6.0 [facility] Comment on above: Performed By: #### A 1C #### [facility] [address] [place], [place] [address] Milagro Castañeda LDHon 09-04-2018 LDH 116 U/L Critically low 122-222 [facility] Comment on above: Performed By: #### P REGQNT #### [facility] [address] [place], [place] [address] Milagrocuauhtemoc Castañeda PROTEIN 24HR URINEon 018 T PROT, 24 HR UR 252.0 mg/24 hr Critically high 42.0-225.0 [facility] Comment on above: Performed By: #### P [id number] #### [facility] [address] [place] [address] Milagro Maddy UR PROT 16.8 mg/dL Critically high <=12.0 [facility] Comment on above: Performed By: #### P ROT24U #### [facility] [address] [place] [address] Milagro Castañeda UR TOT VOL 1500 ml/24 HR Normal [facility] [place] [facility] Comment on above: Performed By: #### P [id number] #### [facility] [address] [place] [address] Milagro Castañeda SGOTon 09-04-2018 AST [Catalytic activity/Vol] 8 U/L Critically low 14-36 [facility] Comment on above: Performed By: #### A ST, URIC, BUN, ALT, LDH, CREA #### [facility] [address] [place] [address] Milagro Castañeda SGPTon 09-04-2018 ALT [Catalytic activity/Vol] 23 U/L Normal 9-52 [facility] Comment on above: Performed By: #### P REGQNT #### [facility] [address] [place] [address] Milagro Castañeda URIC ACID SERUMon 09-04-2018 Urate [Mass/Vol] 4.2 mg/dL Normal 2.5-6.2 [facility] Comment on above: Performed By: #### A ST, URIC, BUN, ALT, LDH, CREA #### [facility] [address] [place] [address] Milagro Castañeda ABO AND RH TYPEon 08-30-2018 ABO and Rh group Nom (Bld) ABO Rh Typing O Rh Positive Normal [facility] Comment on above: Performed By: #### A BORH #### [facility] [address] [place] [address] Milagro Castañeda US PREG TVon 08-30-2018 US PREG TV [address] [id number] Patient: ERICK HARRINGTON Exam Date: 08/30/2018 : 1990 Gender:F Ordering : JUDI NO . Admission #: [id number] Family : Order #: [id number] CLICK HERE TO VIEW EXAM RADIOLOGY REPORT PROCEDURE: ULTRASOUND TRANSVAGINAL COMPARISON: None. INDICATIONS: test positive Z32.01; 7w3d TECHNIQUE: Transvaginal sonographic examination for obstetrical and evaluation. FINDINGS: GESTATIONAL SAC: Present and normal appearing. POLE: Present and normal appearing. YOLK SAC: Present. CARDIAC ACTIVITY: Present. UTERUS: Normal. OVARIES: Right: Corpus Lutein cyst. Left: Not seen. CUL-DE-SAC: Trace amount of free fluid, likely physiologic. OTHER: None. AGE BY LMP: 7 weeks, 3 days EVI BY LMP: April 15, 2019 AGE BY US: 7 weeks, 0 days EVI BY US: April 18, 2019 CONCLUSION: 1. Single live intrauterine . Dictated by: Kee Cooper M.D. on 08/30/2018 at 11:28 Approved by: Kee Cooper M.D. on 08/30/2018 at 12:08 Normal [facility] PREG QUANT HCGon 08-29-2018 HCG QUANT 45975.00 mIU/mL Normal [facility] Comment on above: Performed By: #### P REGQNT #### [facility] [address] [id number] Milagro Castañeda HCG RANGE SEE BELOW Normal [facility] Comment on above: Result Comment: 5-50 0-1 WEEK 40-300 1-2 WEEKS 100-1,000 2-3 WEEKS 500-6,000 3-4 WEEKS 5,000-200,000 1-2 MONTHS 10,000-100,000 2-3 MONTHS 3,000-50,000 2ND TRIMESTER 1,000-50,000 3RD TRIMESTER Performed By: #### P REGQNT #### [facility] [address] [id number] Milagro Castañeda Vital Signs Date Time Vital Sign Value Performing Clinician Facility 10-12-2023 10:45-0500 Body height 180.34 cm Shruthi Vang Other [facility] Other 10-12-2023 10:45-0500 Body mass index (BMI) [Ratio] 39.77 kg/m2 Shruthi Vang Other [facility] Other 10-12-2023 10:45-0500 Body temperature 98.6 [degF] Shruthi Ciera Other [facility] Other 10-12-2023 10:45-0500 Body weight 129.37 kg Shruthi Ciera Other [facility] Other 10-12-2023 10:45-0500 Diastolic blood pressure 98 mm[Hg] Shruthi Ciera Other [facility] Other 10-12-2023 10:45-0500 Respiratory rate 18 /min Shruthi Ciera Other [facility] Other 10-12-2023 10:45-0500 SaO2% (BldA) [Mass fraction] 96 % Shruthi Ciera Other [facility] Other 10-12-2023 10:45-0500 Systolic blood pressure 143 mm[Hg] Shruthi Ciera Other [facility] Other 08-31-2021 14:30-0500 Body height 180.34 cm Ramila Ginty Other [facility] Other 08-31-2021 14:30-0500 Body mass index (BMI) [Ratio] 37.1 kg/m2 Ramila Ginty Other [facility] Other 08-31-2021 14:30-0500 Body temperature 97.1 [degF] Ramila Ginty Other [facility] Other 08-31-2021 14:30-0500 Body weight 120.66 kg Ramila Ginty Other [facility] Other 08-31-2021 14:30-0500 SaO2% (BldA) [Mass fraction] 99 % Ramila Ginty Other [facility] Other 11-01-2018 02:06-0500 Body weight 113.8536 kg JUDI NO [facility] Comment on above: Performed By: #### AFPTET ####[facility] [id number] [place], [place] [address] Encounters Encounter Date Encounter Type Care Provider Facility Start: 10-12-2023 End: 10-12-2023 ambulatory Shruthi Ciera Other [facility] Other Start: 10-12-2023 Office outpatient vi sit 15 minutes Shruthi Ciera [facility] Start: 08-31-2021 End: 08-31-2021 ambulatory Ramila Ginty Other [facility] Other Start: 08-31-2021 Office outpatient vi sit 15 minutes Ramila Ginty [facility] Start: 03-28-2019 Patient encounter procedure JUDI NO Facility:[facility] Start: 03-21-2019 Patient encounter procedure JUDI NO Facility:[facility] Start: 03-14-2019 Patient encounter procedure JUDI NO Facility:[facility] Start: 03-07-2019 End: 03-07-2019 Patient encounter procedure JUDI NO Facility:[facility] Start: 02-28-2019 End: 02-28-2019 Patient encounter procedure JUDI NO Facility:[facility] Start: 01-10-2019 End: 01-10-2019 Patient encounter procedure JUDI NO Facility:[facility] Start: 01-05-2019 End: 01-06-2019 Patient encounter procedure JUDI NO Facility:[facility] Start: 12-28-2018 End: 12-29-2018 Patient encounter procedure JUDI NO Facility:[facility] Start: 10-27-2018 End: 10-28-2018 Patient encounter procedure JUDI NO Facility:[facility] Start: 10-18-2018 End: 10-18-2018 Patient encounter procedure JUDI NO Facility:[facility] Start: 10-13-2018 End: 10-14-2018 Patient encounter procedure JUDI NO Facility:[facility] Start: 09-25-2018 End: 09-26-2018 Patient encounter procedure JUDI NO Facility:[facility] Start: 09-15-2018 End: 09-15-2018 Patient encounter procedure JUDI NO Facility:[facility] Start: 09-04-2018 End: 09-05-2018 Patient encounter procedure JUDI NO Facility:[facility] Start: 08-30-2018 End: 08-31-2018 Patient encounter procedure JUDI NO Facility:[facility] Start: 08-29-2018 End: 08-30-2018 Patient encounter procedure JUDI NO Facility:[facility] Payers Date Payer Category Payer Unknown [id number] 2.16.84 [id number] 1992 Unknown [id number] 2.16.84 [id number] 1992 Unknown [id number] 2.16.84 [id number] 1992 Unknown [id number] 2.16.84 0.1.719006.3.579.2.593 1992 Unknown [id number] 2.16.84 0.1.850659.3.579.2.59 1992 Unknown [id number] 2.16.84 0.1.465898.3.579.2.593 1992 Unknown [id number] 2.16.84 0.1.469430.3.579.2.593 1992 Unknown [id number] 2.16.84 0.1.091108.3.579.2.593 1992 Unknown [id number] 2.16.84 0.1.787896.3.579.2.593 1992 Unknown [id number] 2.16.84 0.1.855684.3.579.2.593 1992 Unknown [id number] 2.16.84 0.1.600196.3.579.2.593 1992 Unknown [id number] 2.16.84 0.1.297022.3.579.2.593 1992 Unknown [id number] 2.16.84 0.1.033763.3.579.2.593 1992 Unknown [id number] 2.16.84 0.1.343049.3.579.2.593 1992 Unknown [id number] 2.16.84 0.1.152658.3.579.2.593 1992 Unknown [id number] 2.16.84 0.1.320449.3.579.2.593 1959 [id number] [id number] Social History Date Type Detail Facility Unknown if ever smoked [facility] Other Sex Assigned At Sex Assigned At Bir [facility] Other Evaluation note 10-12-2023 Note Date & Type Note Facility 10-12-2023 Evaluation note Encounter Date Diagnosis Assessment Notes Oct, Contact with and (suspected) exposure to covid-19 (ICD-10 - Z20.822) Oct, Influenza A (ICD-10 - J10.1) Influenza: adult home care material was printed Drink plenty fluids, get plenty of rest. Take the prednisone as prescribed until gone for your cough and inflammation. Take Tylenol or Motrin as needed for aches pains or fevers. Take Delsym or Robitussin as needed for cough. You should quarantine from people until Tuesday. Follow-up with your family physician if no improvement in 2 to 3 days. You may return to work on Tuesday, working from home. Oct, Acute cough (ICD-10 - R05.1) [facility] Other Evaluation note 08-31-2021 Note Date & Type Note Facility 08-31-2021 Evaluation note Encounter Date Diagnosis Assessment Notes Aug, Contact with and (suspected) exposure to other viral communicable diseases (ICD-10 - Z20.828) Aug, COVID-19 (ICD-10 - U07.1) Rapid COVID test performed in office today. Advised patient that test was positive. Instructed patient to isolate per CDC guidelines for 10 days from symptom onset. May return to work/activities outside home after isolation period as long as symptoms are improving and has been afebrile for 24 hours without use of antipyretic. Advised patient that health dept. will be in contact as results are reported to them. Advised patient that treatment of COVID is with viral supportive care. Capmist as directed. Avoid additional OTC cough/cold medications while using CAPMIST as it contains decongestant, antitussive, and antihistamine. Tylenol/Motrin as needed for body aches/fever. Increase fluids and rest. Encouraged use of cool mist humidifier. Follow-up with PCP to advise of positive result and further management need. Immediate eval for SOB, difficulty, chest pain, fevers that do not break with antipyretic or any other concerning symptoms as reviewed on patient education handout. Patient verbalizes understanding and is agreeable to treatment plan. Patient left in stable condition Aug, Other Additional time spent conducting pre-visit phone call, screening for symptoms, instructions on social distancing, application and removal of PPE, and cleaning of examination room, equipment and supplies was preformed. Patient education given for testing methodology and results. Patient care instructions given in writting by [facility] document [facility] Other History general Narrative - Reported Note Date & Type Note Facility History general Narrative - Reported Type Surgical History 2011 Surgical History C section 2018 Surgical History D&C Hospitalization History see above surgical histo ry [facility] Other Summary Purpose Family History No Family History Records Found Advance Directives No Advanced Directives Records Found Additional Source Comments INFORMATION SOURCE (unrecogn ized section and content) DATE CREATED AUTHOR 05/19/2019 The Jessica leonardo REASON FOR VISIT (unrecogniz ed section and content) #19 BLUE OTIS MIX S CONGESTION, LOSS OF TASTE/SMELLCONGESTION, COUGH, HEADACHES FOR RECORDS PERTAINING TO PATIENTS WHO ARE OR HAVE BEEN ENROLLED IN A CHEMICAL DEPENDENCY/SUBSTANCEABUSE PROGRAM, SOME INFORMATION MAY BE OMITTED. This clinical summary was aggregated from multiple sources. Caution should be exercised in using it in the provision of clinical care. This summary normalizes information from multiple sources, and as a consequence, information in this document may materially change the coding, format and clinical context of patient data. In addition, data may be omitted in some cases. CLINICAL DECISIONS SHOULD BE BASED ON THE PRIMARY CLINICAL RECORDS. [facility]. provides no warranty or guarantee of the accuracy or completeness of information in this document.
[2023-11-25] MEDS: KETOROLAC TROMETHAMINE 30 MG/ML VIAL IVP (11:13)
[2023-11-25] MEDS: PROCHLORPERAZINE 10 MG/2 ML VIAL IV (11:14)
[2023-11-25 12:05] LABS: Influenza Virus A Antigen Negative; Influenza Virus B Antigen Negative; Internal Control Within Normal Limits; SARS-CoV-2 Ag NEGATIVE (NEGATIVE)
[2023-11-25 13:00] VITALS: BP 147/82; PULSE 85; RESP 14; O2SAT 97
== END 2023-11-25 13:07 | disposition home or self-care (01) ==
PROVIDERS: Emergency Provider Emergency Medicine
DX: R51.9 Headache, unspecified (principal); R11.2 Nausea with vomiting, unspecified; F17.210 Nicotine dependence, cigarettes, uncomplicated; Z20.822 Contact with and (suspected) exposure to COVID-19
CPT/HCPCS: 87804; 87811; 96361; 96374; 96375; 99284; J0780; J1100; J1885; J2405